=== PATIENT | female | born 1955 | race Caucasian/White ===

== ENCOUNTER 2018-01-10 15:49 | Outpatient (CLI) | payer OTHER ==
[~2018-01-10] VITALS: Ht 161.3 cm; Wt 71.2 kg
[2018-01-10 16:49] LABS: BASOPHILS % (AUTO) 0.3 % (0-1); EOSINOPHILS # (AUTO) 0.2 X10'3 (0-0.9); EOSINOPHILS % (AUTO) 3.2 % (0-6); HEMATOCRIT 37.8 % (35.0-45.0); HEMOGLOBIN 12.4 g/dl (12.0-16.0); LYMPHOCYTES # (AUTO) 1.6 X10'3 (1.1-4.8); LYMPHOCYTES % (AUTO) 30.4 % (21-51); MEAN CORPUSCULAR HEMOGLOBIN 27.1 PG (27.0-31.0); MEAN CORPUSCULAR HGB CONC 32.9 % (33.0-36.5); MEAN CORPUSCULAR VOLUME 82.3 FL (78-98); MEAN PLATELET VOLUME 7.8 FL (7.4-10.4); MONOCYTES # (AUTO) 0.2 X10'3 (0-0.9); MONOCYTES % (AUTO) 4.5 % (2-12); NEUTROPHILS # (AUTO) 3.3 X10'3 (1.8-7.7); NEUTROPHILS % (AUTO) 61.6 % (42-75); PLATELET COUNT 267 X10'3 (140-440); RED BLOOD COUNT 4.59 X10'6 (4.20-5.60); RED CELL DISTRIBUTION WIDTH 14.8 % (11.5-14.5); WHITE BLOOD COUNT 5.4 X10'3 (4.5-11.0)
[2018-01-10] MEDS ORDERED: albuterol 2.5 MG/3 ML nebule NEB ONE (16:55)
[2018-01-10 17:35] LABS: CLARITY,URINE CLEAR (Clear); COLOR,URINE YELLOW (Yellow); GLUCOSE, URINE NEGATIVE (Neg); KETONES,URINE NEGATIVE (Neg); LEUKOCYTE ESTERASE ,URINE NEGATIVE (Neg); NITRITES, URINE NEGATIVE (Neg); OCCULT BLOOD,URINE NEGATIVE (Neg); PROTEIN,URINE NEGATIVE (Neg); UROBILINOGEN,URINE 0.2 E.U/dL (0.2-1.0)
[2018-01-10 17:37] LABS: UA COLLECTION TYPE CLN CATCH MIDSTREAM
[2018-01-10 17:43] LABS: % IRON SATURATION 32 % (11-46); IRON 119 UG/DL (49-151); TOTAL IRON BINDING CAPACITY 377 UG/DL (259-388)
[2018-01-10 17:52] LABS: ALANINE AMINOTRANSFERASE 25 U/L (12-78); ALBUMIN 3.9 G/DL (3.4-5.0); ALBUMIN/GLOBULIN RATIO 1.1 (1.1-1.5); ALKALINE PHOSPHATASE 138 IU/L (46-116); ANION GAP 10 (8-16); ASPARTATE AMINO TRANSFERASE 20 U/L (10-37); BILIRUBIN,TOTAL 0.6 MG/DL (0.1-1.0); BLOOD UREA NITROGEN 19 MG/DL (7-18); BUN/CREATININE RATIO 18.3 (6.6-38.0); CALCIUM 9.9 MG/DL (8.5-10.1); CHLORIDE 103 MMOL/L (99-107); CHOL/HDL RATIO 3.1 (0.00-4.99); CHOLESTEROL 203 MG/DL (0-200); CREATININE 1.04 MG/DL (0.40-0.90); GLUCOSE 80 MG/DL (70-104); HDL CHOLESTEROL 66 MG/DL (35-60); LDL CHOLESTEROL 125 MG/DL (50-100); POTASSIUM 3.7 MMOL/L (3.5-5.1); SODIUM 139 MMOL/L (135-145); TOTAL CARBON DIOXIDE 26.4 MMOL/L (24-32); TOTAL PROTEIN 7.6 G/DL (6.4-8.2); TRIGLYCERIDES 78 MG/DL (20-135); eGFR 54 ML/MIN
[2018-01-10 21:40] LABS: FERRITIN 31 NG/ML (8-252)
[2018-01-11 15:36] LABS: PARATHYROID HORMONE 139 PG/ML (11-67)
[2018-01-13 05:14] LABS: VITAMIN D, 25-HYDROXY 11.1 ng/mL (30.0-100.0)
[2018-01-13 06:34] LABS: MICROALB/CRT, RATIO 10.7 mg/g creat (0.0-30.0)
== END 2018-01-10 23:59 | disposition home or self-care (01) ==
LOC: RT 15:49
PROVIDERS: ATTEND Family Medicine
DX: R06.09 Other forms of dyspnea (principal); J98.4 Other disorders of lung; Z87.09 Personal history of other diseases of the respiratory system; Z98.84 Bariatric surgery status; Z87.891 Personal history of nicotine dependence
CPT/HCPCS: 36415; 80053; 80061; 81003; 82043; 82306; 82330; 82570; 82607; 82728; 82746; 83540; 83550; 83970; 84439; 84443; 84466; 85025; 94060; 94727; 94729; 94760

== ENCOUNTER 2018-01-16 15:59 | Outpatient (CLI) | payer OTHER | END 2018-01-16 23:59 | disposition home or self-care (01) | LOC: RAD 15:59 | PROVIDERS: ATTEND Anesthesiology | DX: M48.02 Spinal stenosis, cervical region (principal); S13.140A Subluxation of C3/C4 cervical vertebrae, initial encounter; M47.814 Spondylosis without myelopathy or radiculopathy, thoracic region; M40.295 Other kyphosis, thoracolumbar region; Z87.891 Personal history of nicotine dependence; X58.XXXA Exposure to other specified factors, initial encounter; Y93.89 Activity, other specified; Y92.89 Other specified places as the place of occurrence of the external cause; Y99.8 Other external cause status | CPT/HCPCS: 72050; 72070; 72125 ==

== ENCOUNTER 2019-08-27 08:49 | Emergency (ER) | payer OTHER, MEDICARE ==
[~2019-08-27] VITALS: Ht 160 cm; Wt 68.2 kg
[2019-08-27 08:55] VITALS: BP 140/81
== END 2019-08-27 09:56 | disposition home or self-care (01) ==
LOC: ER 08:50
DX: R53.81 Other malaise (principal); R53.83 Other fatigue; R50.9 Fever, unspecified; Z20.828 Contact with and (suspected) exposure to other viral communicable diseases; Z88.8 Allergy status to other drugs, medicaments and biological substances
CPT/HCPCS: 36415; 99281; 99283

== ENCOUNTER 2021-11-01 15:09 | Inpatient (IN) | payer BC, MEDICARE ==
[~2021-11-01] VITALS: Ht 161.3 cm; Wt 54.0 kg
[2021-11-01] MEDS ORDERED: HYDROmorphone/PF 0.2 MG/ML SYRINGE IV PRN (15:25)
[2021-11-01] MEDS ORDERED: magnesium hydroxide 30ml (MOM) UD suspension PO PRN (15:25)
[2021-11-01] MEDS ORDERED: acetaminophen 325mg tablet PO PRN (15:25)
[2021-11-01] MEDS ORDERED: ondansetron/PF 4mg/2ml inj IV PRN (15:25)
[2021-11-01] MEDS ORDERED: HYDROmorphone inj. 0.5 MG/0.5 ML DISP.SYRIN IV PRN (15:25)
[2021-11-01] MEDS ORDERED: mag hydrox/Alum hydrox/simeth 30ml oral suspension PO PRN (15:25)
[2021-11-01 16:27] LABS: BASOPHILS % (AUTO) 0.4 % (0-1); EOSINOPHILS # (AUTO) 0.1 X10'3 (0-0.9); EOSINOPHILS % (AUTO) 0.8 % (0-6); HEMOGLOBIN 11.8 g/dl (12.0-16.0); LYMPHOCYTES # (AUTO) 1.6 X10'3 (1.1-4.8); LYMPHOCYTES % (AUTO) 15.7 % (21-51); MEAN CORPUSCULAR HEMOGLOBIN 27.5 PG (27.0-31.0); MEAN CORPUSCULAR HGB CONC 32.8 g/dL (33.0-36.5); MEAN CORPUSCULAR VOLUME 83.8 FL (78-98); MEAN PLATELET VOLUME 7.5 FL (7.4-10.4); MONOCYTES # (AUTO) 0.6 X10'3 (0-0.9); MONOCYTES % (AUTO) 6.5 % (2-12); NEUTROPHILS # (AUTO) 7.7 X10'3 (1.8-7.7); NEUTROPHILS % (AUTO) 76.6 % (42-75); PLATELET COUNT 332 X10'3 (140-440)
[2021-11-01] MEDS: HYDROcodone/acetaminophen 5mg/325mg tablet PO PRN (17:16)
[2021-11-01] MEDS: normal saline 1000ml 1,000 ML IV SCH (17:17)
[2021-11-01] MEDS ORDERED: enoxaparin 100mg/ml syringe SUBCUT ONE ×2 (17:20→19:00)
[2021-11-01] MEDS ORDERED: BUPR300T86 PO (17:21)
[2021-11-01] MEDS ORDERED: CHOL20004 PO (17:21)
[2021-11-01] MEDS ORDERED: MSC30T PO (17:21)
[2021-11-01] MEDS ORDERED: LOSA100T57 PO (17:21)
[2021-11-01] MEDS ORDERED: CYAN100082 PO (17:21)
[2021-11-01] MEDS ORDERED: DEXT20TA6 PO (17:21)
[2021-11-01] MEDS ORDERED: CEPH-585 PO (17:21)
[2021-11-01] MEDS ORDERED: POLY17PO10 PO (17:21)
[2021-11-01] MEDS ORDERED: FLUC200T93 PO (17:21)
[2021-11-01 17:22] LABS: ALANINE AMINOTRANSFERASE 22 U/L (12-78); ALBUMIN 3.5 G/DL (3.4-5.0); ALBUMIN/GLOBULIN RATIO 0.8 (1.1-1.5); ALKALINE PHOSPHATASE 163 IU/L (46-116); ANION GAP 8 (8-16); ASPARTATE AMINO TRANSFERASE 21 U/L (10-37); BILIRUBIN,TOTAL 0.3 MG/DL (0.1-1.0); BLOOD UREA NITROGEN 42 MG/DL (7-18); BUN/CREATININE RATIO 19.3 (6.6-38.0); CALCIUM 10.7 MG/DL (8.5-10.1); CHLORIDE 100 MMOL/L (99-107); CREATININE 2.18 MG/DL (0.40-0.90); GLUCOSE 96 MG/DL (70-104); POTASSIUM 3.6 MMOL/L (3.5-5.1); SODIUM 137 MMOL/L (135-145); TOTAL CARBON DIOXIDE 29.4 MMOL/L (24-32); TOTAL PROTEIN 7.9 G/DL (6.4-8.2); eGFR 22 ML/MIN
[2021-11-01] MEDS ORDERED: FLUO60SO3 TOP (17:25)
--- NOTE | 2021-11-01 17:46 | NUR ---
patient admitted from wound clinic as direct admit. orientated to room, picture taken of right ankle. swab taken of wound. PIV placed in RFA, NS@70mls/hr. Duck 5mg given for pain. will continue to monitor
[2021-11-01 18:00] VITALS: BP 150/83
[2021-11-01] MEDS ORDERED: morphine ER 30mg tablet PO PRN (18:15)
[2021-11-01] MEDS ORDERED: dextroamphetamine/amphetamine 10mg tablet PO PRN (18:15)
[2021-11-01] MEDS ORDERED: FLUOCINONIDE TOP PRN (18:15)
--- NOTE | 2021-11-01 18:53 | NUR ---
Problems reprioritized. Patient report given, questions answered & plan of care reviewed with Heather LOYD.
--- NOTE | 2021-11-01 19:17 | NUR ---
Problems reprioritized. Patient report given, questions answered & plan of care reviewed with Heather LOYD.
[2021-11-01] MEDS: docusate sod 100mg capsule PO SCH (20:00)
[2021-11-01] MEDS: cephalexin 500mg capsule PO SCH (20:58)
[2021-11-01 22:00] VITALS: BP 130/45
[2021-11-02] MEDS: HYDROcodone/acetaminophen 5mg/325mg tablet PO PRN (05:51)
[2021-11-02] MEDS: normal saline 1000ml 1,000 ML IV SCH (05:52)
[2021-11-02 06:00] VITALS: BP 120/55
--- NOTE | 2021-11-02 06:00 | NUR ---
Patient in room ORTHO 4007. I have received report from May and had the opportunity to ask questions and assume patient care.
[2021-11-02 06:41] LABS: BASOPHILS % (AUTO) 0.5 % (0-1); EOSINOPHILS # (AUTO) 0.1 X10'3 (0-0.9); EOSINOPHILS % (AUTO) 2.4 % (0-6); HEMATOCRIT 30.7 % (35.0-45.0); HEMOGLOBIN 10.1 g/dl (12.0-16.0); LYMPHOCYTES # (AUTO) 1.3 X10'3 (1.1-4.8); LYMPHOCYTES % (AUTO) 21.8 % (21-51); MEAN CORPUSCULAR HGB CONC 32.7 g/dL (33.0-36.5); MEAN CORPUSCULAR VOLUME 85.4 FL (78-98); MEAN PLATELET VOLUME 7.6 FL (7.4-10.4); MONOCYTES # (AUTO) 0.5 X10'3 (0-0.9); MONOCYTES % (AUTO) 7.9 % (2-12); NEUTROPHILS # (AUTO) 3.9 X10'3 (1.8-7.7); NEUTROPHILS % (AUTO) 67.4 % (42-75); PLATELET COUNT 262 X10'3 (140-440); RED CELL DISTRIBUTION WIDTH 14.9 % (11.5-14.5); WHITE BLOOD COUNT 5.8 X10'3 (4.5-11.0)
[2021-11-02 07:00] LABS: ALANINE AMINOTRANSFERASE 19 U/L (12-78); ALBUMIN 2.5 G/DL (3.4-5.0); ALBUMIN/GLOBULIN RATIO 0.7 (1.1-1.5); ALKALINE PHOSPHATASE 132 IU/L (46-116); ANION GAP 7 (8-16); ASPARTATE AMINO TRANSFERASE 24 U/L (10-37); BILIRUBIN,TOTAL 0.2 MG/DL (0.1-1.0); BLOOD UREA NITROGEN 42 MG/DL (7-18); BUN/CREATININE RATIO 20.3 (6.6-38.0); CALCIUM 9.8 MG/DL (8.5-10.1); CHLORIDE 105 MMOL/L (99-107); CREATININE 2.07 MG/DL (0.40-0.90); GLUCOSE 111 MG/DL (70-104); POTASSIUM 4.2 MMOL/L (3.5-5.1); SODIUM 140 MMOL/L (135-145); TOTAL CARBON DIOXIDE 27.8 MMOL/L (24-32); TOTAL PROTEIN 6.1 G/DL (6.4-8.2); eGFR 24 ML/MIN
[2021-11-02] MEDS ORDERED: enoxaparin 60mg/0.6ml syringe SUBCUT SCH (08:00)
[2021-11-02] MEDS ORDERED: cholecalciferol (vitamin D3) 1,000 unit (25mcg) tablet PO SCH (08:00)
[2021-11-02] MEDS ORDERED: losartan 50mg tablet PO SCH (08:00)
[2021-11-02] MEDS: docusate sod 100mg capsule PO SCH (08:00)
[2021-11-02] MEDS ORDERED: polyethylene glycol 3350 17gm powd pack PO SCH (08:00)
[2021-11-02] MEDS ORDERED: buPROPion SR 150mg tablet PO SCH (08:00)
[2021-11-02] MEDS ORDERED: cyanocobalamin 500mcg tablet PO SCH (08:00)
[2021-11-02] MEDS: cephalexin 500mg capsule PO SCH ×2 (08:56→13:31)
[2021-11-02 10:00] VITALS: BP 102/57
[2021-11-02] MEDS ORDERED: apixaban 5mg tablet PO ONE (17:10)
[2021-11-02] MEDS ORDERED: APIX5TAB3 PO (17:12)
--- NOTE | 2021-11-02 18:22 | NUR ---
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 Pt well aware of follow up needed, medications and plan for continued care. Pt dressed herself and chose to walk downstairs to be driven home by spouse. All of pt's belongings went home with patient.
[2021-11-03] MEDS ORDERED: enoxaparin 60mg/0.6ml syringe SUBCUT SCH (08:00)
[2021-11-03] MEDS ORDERED: fluconazole 100mg tablet PO SCH (08:00)
== END 2021-11-02 17:40 | disposition home or self-care (01) | DRG 301 ==
LOC: ORTHO 4S 15:12 → EEVIPCON 15:12
PROVIDERS: ADMIT Family Medicine; ATTEND Family Medicine
DX: I82.411 Acute embolism and thrombosis of right femoral vein (principal); I82.431 Acute embolism and thrombosis of right popliteal vein; I82.441 Acute embolism and thrombosis of right tibial vein; I82.451 Acute embolism and thrombosis of right peroneal vein; N18.30 Chronic kidney disease, stage 3 unspecified; S91.001A Unspecified open wound, right ankle, initial encounter; X58.XXXA Exposure to other specified factors, initial encounter; D63.8 Anemia in other chronic diseases classified elsewhere; F43.10 Post-traumatic stress disorder, unspecified; I12.9 Hypertensive chronic kidney disease with stage 1 through stage 4 chronic kidney disease, or unspecified chronic kidney disease; I82.511 Chronic embolism and thrombosis of right femoral vein; I82.531 Chronic embolism and thrombosis of right popliteal vein; I82.541 Chronic embolism and thrombosis of right tibial vein; I82.551 Chronic embolism and thrombosis of right peroneal vein; J45.909 Unspecified asthma, uncomplicated; M40.202 Unspecified kyphosis, cervical region; F32.A Depression, unspecified; G62.9 Polyneuropathy, unspecified; K21.9 Gastro-esophageal reflux disease without esophagitis; Z90.710 Acquired absence of both cervix and uterus; Y93.89 Activity, other specified; Y92.89 Other specified places as the place of occurrence of the external cause; Y99.8 Other external cause status
CPT/HCPCS: 36415; 80053; 85025; 85610; 87081; A6212; A6213; A6446; A6449; G0378; J1650; J7030

== ENCOUNTER 2021-11-04 13:59 | Outpatient (CLI) | payer BC, MEDICARE ==
[~2021-11-04 13:59] MED LIST: APIX5TAB3 PO; BUPR300T86 PO; CEPH-585 PO; CHOL20004 PO; CYAN100082 PO; DEXT20TA6 PO; FLUC200T93 PO; FLUO60SO3 TOP; LOSA100T57 PO; MSC30T PO; POLY17PO10 PO
== END 2021-11-04 23:59 | disposition home or self-care (01) ==
LOC: LAB 13:59
PROVIDERS: ATTEND Nurse Practitioner
DX: L98.499 Non-pressure chronic ulcer of skin of other sites with unspecified severity (principal)
CPT/HCPCS: 87070

== ENCOUNTER 2021-11-17 09:58 | Outpatient (CLI) | payer BC, MEDICARE ==
[2021-11-17 10:55] LABS: BASOPHILS # (AUTO) 0.1 X10'3 (0-0.2); EOSINOPHILS # (AUTO) 0.3 X10'3 (0-0.9); EOSINOPHILS % (AUTO) 3.8 % (0-6); HEMATOCRIT 31.5 % (35.0-45.0); HEMOGLOBIN 10.4 g/dl (12.0-16.0); LYMPHOCYTES # (AUTO) 1.5 X10'3 (1.1-4.8); LYMPHOCYTES % (AUTO) 21.8 % (21-51); MEAN CORPUSCULAR HEMOGLOBIN 27.9 PG (27.0-31.0); MEAN CORPUSCULAR HGB CONC 32.9 g/dL (33.0-36.5); MEAN CORPUSCULAR VOLUME 84.8 FL (78-98); MEAN PLATELET VOLUME 6.7 FL (7.4-10.4); MONOCYTES # (AUTO) 0.3 X10'3 (0-0.9); MONOCYTES % (AUTO) 4.8 % (2-12); NEUTROPHILS # (AUTO) 4.6 X10'3 (1.8-7.7); NEUTROPHILS % (AUTO) 68.6 % (42-75); PLATELET COUNT 379 X10'3 (140-440); RED BLOOD COUNT 3.71 X10'6 (4.20-5.60); WHITE BLOOD COUNT 6.8 X10'3 (4.5-11.0)
[2021-11-17 11:16] LABS: % IRON SATURATION 18 % (11-46); IRON 51 UG/DL (49-151); TOTAL IRON BINDING CAPACITY 289 UG/DL (259-388)
[2021-11-17 11:28] LABS: ALANINE AMINOTRANSFERASE 26 U/L (12-78); ALBUMIN 3.4 G/DL (3.4-5.0); ALBUMIN/GLOBULIN RATIO 0.8 (1.1-1.5); ALKALINE PHOSPHATASE 155 IU/L (46-116); ANION GAP 9 (8-16); ASPARTATE AMINO TRANSFERASE 25 U/L (10-37); BILIRUBIN,TOTAL 0.2 MG/DL (0.1-1.0); BLOOD UREA NITROGEN 28 MG/DL (7-18); BUN/CREATININE RATIO 15.2 (6.6-38.0); C-REACTIVE PROTEIN 0.42 MG/DL (0.0-0.5); CALCIUM 10.4 MG/DL (8.5-10.1); CHLORIDE 103 MMOL/L (99-107); CHOL/HDL RATIO 2.9 (0.00-4.99); CHOLESTEROL 200 MG/DL (0-200); CREATININE 1.84 MG/DL (0.40-0.90); FERRITIN 95 NG/ML (8-252); GLUCOSE 87 MG/DL (70-104); HDL CHOLESTEROL 69 MG/DL (35-60); LDL CHOLESTEROL 105 MG/DL (50-100); PHOSPHORUS 2.8 MG/DL (2.3-4.5); POTASSIUM 4.4 MMOL/L (3.5-5.1); SODIUM 137 MMOL/L (135-145); TOTAL CARBON DIOXIDE 25.4 MMOL/L (24-32); TOTAL PROTEIN 7.7 G/DL (6.4-8.2); TRIGLYCERIDES 84 MG/DL (20-135); eGFR 27 ML/MIN
[2021-11-17 13:16] LABS: CLARITY,URINE CLEAR (Clear); COLOR,URINE YELLOW (Yellow); GLUCOSE, URINE NEGATIVE (Neg); KETONES,URINE NEGATIVE (Neg); LEUKOCYTE ESTERASE ,URINE NEGATIVE (Neg); NITRITES, URINE NEGATIVE (Neg); OCCULT BLOOD,URINE TRACE-INTACT (Neg); PH,URINE 6.5 (4.8-8.0); PROTEIN,URINE NEGATIVE (Neg); UROBILINOGEN,URINE 0.2 E.U/dL (0.2-1.0)
[2021-11-17 13:20] LABS: UA COLLECTION TYPE CLN CATCH MIDSTREAM
[2021-11-17 13:23] LABS: WBC,URINE 0-4 /HPF (0-4)
[2021-11-17 13:24] LABS: BACTERIA,URINE NONE SEEN /HPF (Neg); SQUAMOUS EPITHELIAL CELL,UR NONE SEEN /LPF (FEW)
[2021-11-18 11:37] LABS: A/G RATIO 0.9 (0.7-1.7); ALBUMIN 3.3 g/dL (2.9-4.4); GAMMA GLOBULIN 1.2 g/dL (0.4-1.8); GLOBULIN, TOTAL 3.6 g/dL (2.2-3.9); M-SPIKE Not Observed g/dL (Not Observed); PROTEIN, TOTAL, SERUM 6.9 g/dL (6.0-8.5); TRANSFERRIN 247 mg/dL (192-364)
[2021-11-18 18:14] LABS: MICROALB/CRT, RATIO 20 mg/g creat (0-29)
== END 2021-11-17 23:59 | disposition home or self-care (01) ==
LOC: LAB 09:58 → RAD 23:59
PROVIDERS: ATTEND Nurse Practitioner
DX: N18.4 Chronic kidney disease, stage 4 (severe) (principal); N28.1 Cyst of kidney, acquired; N13.39 Other hydronephrosis
CPT/HCPCS: 36415; 76770; 78707; 80053; 80061; 81001; 82043; 82306; 82330; 82570; 82607; 82728; 82746; 83540; 83550; 83970; 84100; 84155; 84165; 84439; 84443; 84466; 85025; 85651; 86140; A9562

== ENCOUNTER 2021-12-15 06:23 | Day surgery (SDC) | payer BC, MEDICARE ==
[~2021-12-15] VITALS: Ht 160 cm; Wt 60.0 kg
[2021-12-15 06:34] VITALS: BP 156/88
[2021-12-15] MEDS ORDERED: iron sucrose complex (VENOFER) 200 MG in NS 100ml IV IV SCH (06:45)
[2021-12-15 07:00] VITALS: BP 130/87
[2021-12-15 07:15] VITALS: BP 129/74
[2021-12-15 07:28] VITALS: BP 116/73
== END 2021-12-15 08:00 | disposition home or self-care (01) ==
LOC: SSTAY O 06:23
PROVIDERS: ATTEND Internal Medicine Critical Care Medicine
DX: D50.8 Other iron deficiency anemias (principal); N18.4 Chronic kidney disease, stage 4 (severe); D63.1 Anemia in chronic kidney disease; T50.905A Adverse effect of unspecified drugs, medicaments and biological substances, initial encounter; Y92.89 Other specified places as the place of occurrence of the external cause
CPT/HCPCS: 96365; J1756; J3490; J7030

== ENCOUNTER 2021-12-29 06:21 | Day surgery (SDC) | payer BC, MEDICARE ==
[~2021-12-29] VITALS: Ht 160 cm; Wt 60.0 kg
[2021-12-29 06:55] VITALS: BP 122/77
--- NOTE | 2021-12-29 07:29 | NUR ---
IV infusion started. VS stable as charted. Pt resting in bed with call light in reach.
[2021-12-29 07:30] VITALS: BP 116/54
[2021-12-29 08:00] VITALS: BP 114/48
[2021-12-29] MEDS ORDERED: iron sucrose complex injection 200 MG in normal saline 100ml IV soln 100 ML IV SCH (08:00)
[2021-12-29 08:30] VITALS: BP 122/62
[2021-12-29 08:35] VITALS: BP 135/65
== END 2021-12-29 08:35 | disposition home or self-care (01) ==
LOC: SSTAY O 06:21
PROVIDERS: ATTEND Internal Medicine Critical Care Medicine
DX: D50.8 Other iron deficiency anemias (principal); N18.4 Chronic kidney disease, stage 4 (severe); D63.1 Anemia in chronic kidney disease; T50.905A Adverse effect of unspecified drugs, medicaments and biological substances, initial encounter; Y92.89 Other specified places as the place of occurrence of the external cause
CPT/HCPCS: 96365; J1756; J3490

== ENCOUNTER 2022-01-12 06:05 | Day surgery (SDC) | payer BC, MEDICARE ==
[~2022-01-12] VITALS: Ht 161.3 cm; Wt 60.4 kg
[2022-01-12] MEDS ORDERED: iron sucrose complex (VENOFER) 200 MG in NS 100ml IV IV SCH (06:28)
[2022-01-12] MEDS ORDERED: APIX5TAB3 PO (06:37)
[2022-01-12] MEDS ORDERED: AMLO10TA PO (06:44)
[2022-01-12 06:45] VITALS: BP 151/75
[2022-01-12 06:56] VITALS: BP 151/75
[2022-01-12 07:11] VITALS: BP 128/77
[2022-01-12 07:36] VITALS: BP 121/68
== END 2022-01-12 07:45 | disposition home or self-care (01) ==
LOC: SSTAY O 06:05
PROVIDERS: ATTEND Internal Medicine Critical Care Medicine
DX: D50.8 Other iron deficiency anemias (principal); N18.4 Chronic kidney disease, stage 4 (severe); D63.1 Anemia in chronic kidney disease; T50.905A Adverse effect of unspecified drugs, medicaments and biological substances, initial encounter; Y92.89 Other specified places as the place of occurrence of the external cause
CPT/HCPCS: 96365; J1756; J3490

== ENCOUNTER 2022-08-15 10:37 | Outpatient (CLI) | payer BC, MEDICARE ==
[~2022-08-15 10:37] MED LIST changes: +AMLO10TA PO; -CEPH-585 PO; -FLUO60SO3 TOP; -LOSA100T57 PO; +LOSA100T58 PO
[2022-08-15 11:43] LABS: CLARITY,URINE CLEAR (Clear); COLOR,URINE YELLOW (Yellow); GLUCOSE, URINE NEGATIVE (Neg); KETONES,URINE NEGATIVE (Neg); LEUKOCYTE ESTERASE ,URINE NEGATIVE (Neg); NITRITES, URINE NEGATIVE (Neg); OCCULT BLOOD,URINE NEGATIVE (Neg); PROTEIN,URINE NEGATIVE (Neg); UROBILINOGEN,URINE 0.2 E.U/dL (0.2-1.0)
[2022-08-15 11:45] LABS: BASOPHILS % (AUTO) 0.5 % (0-1); EOSINOPHILS # (AUTO) 0.6 X10'3 (0-0.9); EOSINOPHILS % (AUTO) 7.4 % (0-6); HEMOGLOBIN 12.3 g/dl (12.0-16.0); LYMPHOCYTES # (AUTO) 1.5 X10'3 (1.1-4.8); LYMPHOCYTES % (AUTO) 19.1 % (21-51); MEAN CORPUSCULAR HEMOGLOBIN 24.9 PG (27.0-31.0); MEAN CORPUSCULAR HGB CONC 31.5 g/dL (33.0-36.5); MEAN CORPUSCULAR VOLUME 79.2 FL (78-98); MEAN PLATELET VOLUME 6.8 FL (7.4-10.4); MONOCYTES # (AUTO) 0.4 X10'3 (0-0.9); MONOCYTES % (AUTO) 5.7 % (2-12); NEUTROPHILS # (AUTO) 5.3 X10'3 (1.8-7.7); NEUTROPHILS % (AUTO) 67.3 % (42-75); PLATELET COUNT 437 X10'3 (140-440); RED BLOOD COUNT 4.93 X10'6 (4.20-5.60); RED CELL DISTRIBUTION WIDTH 15.5 % (11.5-14.5); WHITE BLOOD COUNT 7.8 X10'3 (4.5-11.0)
[2022-08-15 11:49] LABS: UA COLLECTION TYPE CLN CATCH MIDSTREAM
[2022-08-15 12:07] LABS: % IRON SATURATION 19 % (11-46); IRON 51 UG/DL (49-151); TOTAL IRON BINDING CAPACITY 265 UG/DL (259-388)
[2022-08-15 12:20] LABS: ALANINE AMINOTRANSFERASE 23 U/L (12-78); ALBUMIN 3.2 G/DL (3.4-5.0); ALBUMIN/GLOBULIN RATIO 0.8 (1.1-1.5); ALKALINE PHOSPHATASE 228 IU/L (46-116); ANION GAP 12 (8-16); ASPARTATE AMINO TRANSFERASE 22 U/L (10-37); BILIRUBIN,TOTAL 0.4 MG/DL (0.1-1.0); BLOOD UREA NITROGEN 25 MG/DL (7-18); BUN/CREATININE RATIO 13.5 (10.0-20.0); CHLORIDE 103 MMOL/L (99-107); CHOL/HDL RATIO 3.6 (0.00-4.99); CHOLESTEROL 210 MG/DL (0-200); CREATININE 1.85 MG/DL (0.40-0.90); GLUCOSE 87 MG/DL (70-104); HDL CHOLESTEROL 59 MG/DL (35-60); LDL CHOLESTEROL 118 MG/DL (50-100); PHOSPHORUS 2.9 MG/DL (2.3-4.5); POTASSIUM 4.1 MMOL/L (3.5-5.1); SODIUM 140 MMOL/L (135-145); TOTAL PROTEIN 7.4 G/DL (6.4-8.2); TRIGLYCERIDES 96 MG/DL (20-135); eGFR 27 ML/MIN
[2022-08-15 12:21] LABS: FERRITIN 48 NG/ML (8-252)
== END 2022-08-15 23:59 | disposition home or self-care (01) ==
LOC: RAD 10:37
PROVIDERS: ATTEND Nurse Practitioner
DX: E07.89 Other specified disorders of thyroid (principal); J43.9 Emphysema, unspecified; I83.013 Varicose veins of right lower extremity with ulcer of ankle; I82.509 Chronic embolism and thrombosis of unspecified deep veins of unspecified lower extremity; R06.00 Dyspnea, unspecified; M40.294 Other kyphosis, thoracic region; M47.814 Spondylosis without myelopathy or radiculopathy, thoracic region; Z96.611 Presence of right artificial shoulder joint
CPT/HCPCS: 36415; 71046; 71250; 80053; 80061; 81003; 82043; 82570; 82728; 83540; 83550; 83880; 84100; 84443; 84466; 85025

== ENCOUNTER 2023-06-19 12:10 | Outpatient (CLI) | payer BC ==
[~2023-06-19 12:10] MED LIST changes: +BUPR-564 PO; -BUPR300T86 PO
[2023-06-19 13:27] LABS: ABSOLUTE RETICS # 46200 /CUMM (23000-93000); BASOPHILS % (AUTO) 0.7 % (0-1); EOSINOPHILS # (AUTO) 0.1 X10'3 (0-0.9); HEMATOCRIT 35.9 % (35.0-45.0); HEMOGLOBIN 11.7 g/dl (12.0-16.0); LYMPHOCYTES # (AUTO) 1.1 X10'3 (1.1-4.8); LYMPHOCYTES % (AUTO) 17.7 % (21-51); MEAN CORPUSCULAR HEMOGLOBIN 26.8 PG (27.0-31.0); MEAN CORPUSCULAR HGB CONC 32.6 g/dL (33.0-36.5); MEAN CORPUSCULAR VOLUME 82.4 FL (78-98); MEAN PLATELET VOLUME 7.4 FL (7.4-10.4); MONOCYTES # (AUTO) 0.3 X10'3 (0-0.9); MONOCYTES % (AUTO) 4.7 % (2-12); NEUTROPHILS # (AUTO) 4.5 X10'3 (1.8-7.7); NEUTROPHILS % (AUTO) 74.9 % (42-75); PLATELET COUNT 321 X10'3 (140-440); RED BLOOD COUNT 4.36 X10'6 (4.20-5.60); RETICULOCYTE % (AUTO) 1.1 % (0.5-1.5)
[2023-06-19 13:27] LABS: BILIRUBIN,URINE NEGATIVE (Neg); CLARITY,URINE CLOUDY (Clear); COLOR,URINE YELLOW (Yellow); GLUCOSE, URINE NEGATIVE (Neg); KETONES,URINE NEGATIVE (Neg); NITRITES, URINE NEGATIVE (Neg); OCCULT BLOOD,URINE NEGATIVE (Neg); PROTEIN,URINE NEGATIVE (Neg); UROBILINOGEN,URINE 0.2 E.U/dL (0.2-1.0)
[2023-06-19 13:32] LABS: LEUKOCYTE ESTERASE ,URINE MODERATE (Neg); UA COLLECTION TYPE VOIDED
[2023-06-19 13:33] LABS: BACTERIA,URINE 4+ /HPF (Neg); SQUAMOUS EPITHELIAL CELL,UR FEW /LPF (FEW); WBC CLUMPS,URINE MODERATE /HPF (NEGATIVE)
[2023-06-19 13:34] LABS: RBC,URINE 0-2 /HPF (0-2); WBC,URINE 30-50 /HPF (0-4)
[2023-06-19 13:37] LABS: D-DIMER 0.63 MG/L FEU (0-0.50)
[2023-06-19 13:43] LABS: % IRON SATURATION 10 % (11-46); IRON 34 UG/DL (49-151); TOTAL IRON BINDING CAPACITY 356 UG/DL (259-388)
[2023-06-19 13:53] LABS: ALANINE AMINOTRANSFERASE 15 U/L (12-78); ALBUMIN 3.9 G/DL (3.4-5.0); ALBUMIN/GLOBULIN RATIO 0.9 (1.1-1.5); ALKALINE PHOSPHATASE 244 IU/L (46-116); ANION GAP 10 (8-16); ASPARTATE AMINO TRANSFERASE 17 U/L (10-37); BILIRUBIN,TOTAL 0.2 MG/DL (0.1-1.0); BLOOD UREA NITROGEN 28 MG/DL (7-18); BUN/CREATININE RATIO 16.3 (10.0-20.0); CALCIUM 9.8 MG/DL (8.5-10.1); CHLORIDE 107 MMOL/L (99-107); CHOLESTEROL 203 MG/DL (0-200); CREATINE KINASE 90 U/L (26-192); CREATININE 1.72 MG/DL (0.40-0.90); FREE T4 (FREE THYROXINE) 0.93 NG/DL (0.73-1.40); GLUCOSE 90 MG/DL (70-104); HDL CHOLESTEROL 67 MG/DL (35-60); PHOSPHORUS 2.6 MG/DL (2.3-4.5); POTASSIUM 4.3 MMOL/L (3.5-5.1); SODIUM 141 MMOL/L (135-145); TOTAL CARBON DIOXIDE 24.3 MMOL/L (24-32); TOTAL PROTEIN 8.1 G/DL (6.4-8.2); TRIGLYCERIDES 55 MG/DL (20-135); eGFR 29 ML/MIN
[2023-06-19 13:58] LABS: HEMOGLOBIN A1C 5.7 % (4.5-6.2); LDL CHOLESTEROL 114 MG/DL (50-100)
[2023-06-19 14:54] LABS: FERRITIN 28 NG/ML (8-252)
[2023-06-19 18:29] LABS: IONIZED CALCIUM 1.35 MMOL/L (1.13-1.33)
[2023-06-21 14:06] LABS: CREATININE, URINE 73.1 mg/dL (Not Estab.)
== END 2023-06-19 23:59 | disposition home or self-care (01) ==
LOC: LAB 12:10
PROVIDERS: ATTEND Family Medicine
DX: I12.9 Hypertensive chronic kidney disease with stage 1 through stage 4 chronic kidney disease, or unspecified chronic kidney disease (principal); N18.4 Chronic kidney disease, stage 4 (severe); R53.83 Other fatigue; I82.503 Chronic embolism and thrombosis of unspecified deep veins of lower extremity, bilateral; E04.1 Nontoxic single thyroid nodule; R35.89 Other polyuria; R09.02 Hypoxemia; E83.52 Hypercalcemia; K90.89 Other intestinal malabsorption; Z98.84 Bariatric surgery status; Z86.2 Personal history of diseases of the blood and blood-forming organs and certain disorders involving the immune mechanism
CPT/HCPCS: 36415; 80053; 80061; 81001; 82043; 82306; 82550; 82570; 82607; 82728; 82746; 83036; 83540; 83550; 83735; 83970; 84100; 84439; 84443; 84466; 84482; 85025; 85045; 85379; 85651; 86140; 87088; 87186

== ENCOUNTER 2024-05-01 09:33 | Day surgery (SDC) | payer MEDICARE, OTHER ==
[~2024-05-01] VITALS: Ht 162.6 cm; Wt 65.4 kg
[~2024-05-01 09:33] MED LIST changes: -APIX5TAB3 PO; -FLUC200T93 PO; +GABA-530 PO; -LOSA100T58 PO; +WARF-55 PO; +hyDRALAzine tablet PO
[2024-05-01] MEDS ORDERED: LISI-642 PO (10:09)
[2024-05-01] MEDS ORDERED: DOCU-148 PO (10:09)
[2024-05-01 10:30] VITALS: BP 100/50; PULSE 75; RESP 16; O2SAT 96
[2024-05-01 10:50] VITALS: BP 137/74; PULSE 76; RESP 16; TEMP 98.1; O2SAT 97
[2024-05-01 10:56] VITALS: RESP 16; O2SAT 97
[2024-05-01 11:02] VITALS: BP 127/71; PULSE 78; RESP 16; O2SAT 96
[2024-05-01 11:31] VITALS: BP 140/80; PULSE 80; RESP 15; RESP 16; O2SAT 95; O2SAT 96
[2024-05-02 12:20] VITALS: BP 139/72; PULSE 74; RESP 16; TEMP 98.4; O2SAT 98
[2024-05-02 13:19] VITALS: BP_SYST 127; BP_SYST 129; BP_DIAS 67; BP_DIAS 68; PULSE 73; RESP 15; RESP 16; O2SAT 94
[2024-05-10] MEDS ORDERED: CHOL100046 PO (11:55)
== END 2024-05-02 13:35 | disposition home or self-care (01) ==
LOC: SSTAY O 09:33
PROVIDERS: ATTEND Internal Medicine Critical Care Medicine
DX: D50.8 Other iron deficiency anemias (principal); N18.4 Chronic kidney disease, stage 4 (severe); D63.1 Anemia in chronic kidney disease
CPT/HCPCS: 96365; J2916

== ENCOUNTER 2024-05-08 13:49 | Outpatient (CLI) | payer MEDICARE, OTHER ==
[~2024-05-08 13:49] MED LIST changes: +DOCU-148 PO; +LISI-642 PO; -POLY17PO10 PO; -hyDRALAzine tablet PO
[2024-05-08] MEDS ORDERED: ALBU8HFA INH (17:55)
[2024-05-08] MEDS ORDERED: HYDR25TA90 PO (17:55)
[2024-05-10] MEDS ORDERED: CHOL100046 PO (11:55)
== END 2024-05-08 23:59 | disposition home or self-care (01) ==
LOC: VAS 13:49
PROVIDERS: ATTEND Internal Medicine Critical Care Medicine
DX: I82.612 Acute embolism and thrombosis of superficial veins of left upper extremity (principal); N18.4 Chronic kidney disease, stage 4 (severe); R60.0 Localized edema; R76.0 Raised antibody titer; M21.12 Varus deformity, not elsewhere classified, elbow
CPT/HCPCS: 93970

== ENCOUNTER 2024-05-09 12:31 | Outpatient (CLI) | payer MEDICARE, OTHER ==
[~2024-05-09 12:31] MED LIST changes: +ALBU8HFA INH; +HYDR25TA90 PO
[2024-05-10] MEDS ORDERED: CHOL100046 PO (11:55)
== END 2024-05-09 23:59 | disposition home or self-care (01) ==
LOC: VAS 12:31
PROVIDERS: ATTEND Internal Medicine Critical Care Medicine
DX: I82.511 Chronic embolism and thrombosis of right femoral vein (principal); R60.0 Localized edema; R76.0 Raised antibody titer; N18.4 Chronic kidney disease, stage 4 (severe)
CPT/HCPCS: 93970

== ENCOUNTER 2024-05-13 06:28 | Observation (INO) | payer MEDICARE, OTHER ==
[2024-05-08 09:47] LABS: BASOPHILS # (AUTO) 0.1 X10'3 (0-0.2); BASOPHILS % (AUTO) 0.6 % (0-1); EOSINOPHILS # (AUTO) 0.3 X10'3 (0-0.9); EOSINOPHILS % (AUTO) 3.1 % (0-6); LYMPHOCYTES # (AUTO) 1.2 X10'3 (1.1-4.8); MEAN CORPUSCULAR HEMOGLOBIN 25.8 PG (27.0-31.0); MEAN CORPUSCULAR HGB CONC 32.2 g/dL (33.0-36.5); MEAN CORPUSCULAR VOLUME 79.9 FL (78-98); MEAN PLATELET VOLUME 7.2 FL (7.4-10.4); MONOCYTES % (AUTO) 11.7 % (2-12); NEUTROPHILS # (AUTO) 6.4 X10'3 (1.8-7.7); NEUTROPHILS % (AUTO) 71.6 % (42-75); PRE OP HEMATOCRIT 33.1 % (35.0-45.0); PRE OP PLATELET COUNT 367 X10'3 (140-440); PRE OP WHITE BLOOD COUNT 8.9 10'3 (4.8-10.8); RED BLOOD COUNT 4.14 X10'6 (4.20-5.60)
[2024-05-08 09:55] LABS: PRE OP HEMOGLOBIN 10.7 g/dL (12.0-16.0)
[2024-05-08 10:04] LABS: ALBUMIN 3.5 G/DL (3.4-5.0); ALBUMIN/GLOBULIN RATIO 0.8 (1.1-1.5); ALKALINE PHOSPHATASE 202 IU/L (46-116); BLOOD UREA NITROGEN 25 MG/DL (7-18); BUN/CREATININE RATIO 14.8 (10.0-20.0); CALCIUM 9.5 MG/DL (8.5-10.1); CREATININE 1.69 MG/DL (0.40-0.90); PRE OP ALT 30 U/L (30-65); PRE OP AST 25 U/L (10-37); PRE OP BILIRUB, TOTAL 0.2 MG/DL (0.0-1.0); PRE OP GLUCOSE 82 MG/DL (70-104); PRE OP POTASSIUM 5.3 MMOL/L (3.4-5.1); PRE OP SODIUM 139 MMOL/L (135-145); TOTAL CARBON DIOXIDE 28.2 MMOL/L (24-32); TOTAL PROTEIN 7.7 G/DL (6.4-8.2); eGFR 30 ML/MIN
[2024-05-08 10:06] LABS: CHLORIDE 105 MMOL/L (99-107); PRE OP ANION GAP 6 (8-16)
[2024-05-13] VITALS (31 sets, daily range): BP systolic 82–124; BP diastolic 32–68; PULSE 50–73; RESP 9–21; TEMP 97.5–97.8; O2SAT 88–99
[~2024-05-13] VITALS: Ht 162.6 cm; Wt 61.8 kg
[2024-05-13] MEDS: ceFAZolin 2gm in dextrose, iso 50 ML IV ONE (05:30)
[~2024-05-13 06:28] MED LIST changes: +CHOL100046 PO; -CHOL20004 PO; +tranexamic acid 650mg tablet PO ONE
[2024-05-13] MEDS ORDERED: morphine 2 MG/ML inj. syringe IV PRN (08:35)
[2024-05-13] MEDS ORDERED: morphine 4 MG/ML inj SYRINge IV PRN (08:35)
[2024-05-13] MEDS ORDERED: ondansetron/PF 4mg/2ml inj IV PRN ×2 (08:35→12:15)
[2024-05-13] MEDS ORDERED: meperidine/PF 100mg/ml syringe IV PRN ×3 (08:35)
[2024-05-13] MEDS ORDERED: labetalol 20mg/4ml (5mg/ml) syringe IV PRN (08:35)
[2024-05-13] MEDS ORDERED: proCHLORperazine 10 MG/2 ml inj IV PRN (08:35)
[2024-05-13] MEDS ORDERED: enalaprilat 1.25mg/ml 2ml vial IV PRN (08:35)
[2024-05-13] MEDS: vancomycin/NS 1 GM ADD-VANTAGE 250 ML IV ONE (08:39)
[2024-05-13] MEDS: famotidine 20mg tablet PO ONE (08:40)
[2024-05-13 08:56] LABS: PRE OP PARTIAL THROMB. TIME 25 SECONDS (22-32); PROTHROMBIN TIME 10.5 SECONDS (9.0-12.0)
[2024-05-13] MEDS ORDERED: ROPIVAcaine 0.5% (5mg/ml) 30ml vial ONE ×2 (09:04→12:00)
[2024-05-13] MEDS ORDERED: BUPIVACAINE/MELOXICAM 14 ML VIAL IL ONE (09:05)
[2024-05-13] MEDS ORDERED: BUPIVAcaine/dex-water/PF 7.5 mg/ml 2ml ampul ONE (09:42)
[2024-05-13] MEDS ORDERED: MIDAZolam 1mg/ml 10ml vial ONE (09:51)
[2024-05-13] MEDS ORDERED: fentaNYL/PF 50MCG/1 ML 2ML syringe ONE (09:51)
[2024-05-13] MEDS: BUPIVACAINE/MELOXICAM 14 ML VIAL IL ONE (10:21)
[2024-05-13] MEDS ORDERED: cloNIDine hcl/PF 100mcg/ml inj ONE (11:46)
[2024-05-13] MEDS ORDERED: BUPIVAcaine/PF 7.5mg/ml (0.75%) 10ml vial ONE (12:00)
[2024-05-13] MEDS ORDERED: dexamethasone sod phosphate 4mg/ml inj. ONE (12:00)
[2024-05-13] MEDS ORDERED: oxyCODONE IR 5mg (immed. release) tablet PO PRN (12:15)
[2024-05-13] MEDS ORDERED: HYDROmorphone 1 mg/ml syringe IV PRN (12:15)
[2024-05-13] MEDS ORDERED: acetaminophen 325mg tablet PO PRN (12:15)
[2024-05-13] MEDS ORDERED: albuterol 2.5 MG/3 ML nebule NEB PRN (12:15)
[2024-05-13] MEDS ORDERED: dextroamphetamine/amphetamine 5mg tablet PO PRN (12:15)
[2024-05-13] MEDS ORDERED: bisacodyl 10mg suppository rectal RC PRN (12:15)
[2024-05-13] MEDS ORDERED: naloxone 0.4 mg/ml inj IV PRN (12:15)
[2024-05-13] MEDS ORDERED: magnesium hydroxide 30ml (MOM) UD suspension PO PRN (12:15)
[2024-05-13] MEDS ORDERED: diphenhydrAMINE 25mg capsule PO PRN ×2 (12:15)
[2024-05-13] MEDS ORDERED: HYDROmorphone inj. 0.5 MG/0.5 ML DISP.SYRIN IV PRN (12:15)
[2024-05-13] MEDS: ringers solution, lacted 1,000 ML IV SCH ×2 (12:48)
[2024-05-13] MEDS: normal saline 500ml IV soln 1,000 ML IV ONE (12:51)
[2024-05-13] MEDS: normal saline 1000ml 1,000 ML IV ONE (13:32)
[2024-05-13] MEDS: acetaminophen 325mg tablet PO SCH (13:38)
[2024-05-13] MEDS: gabapentin 100mg capsule PO SCH (13:39)
[2024-05-13] MEDS: potassium cl 20mEq in 1/2 NS 1,000 ML IV SCH (14:38)
[2024-05-13] MEDS: normal saline 1000ml 1,000 ML IV SCH (14:40)
[2024-05-13] MEDS: albumin (Human) 5% 250ml 250 ML IV ONE (15:32)
[2024-05-13] MEDS: ceFAZolin/D5W- 1GM premix 50 ML IV SCH (17:21)
[2024-05-13] MEDS: vancomycin/NS 1 GM ADD-VANTAGE 250 ML IV SCH (20:50)
[2024-05-13] MEDS: gabapentin 300mg capsule PO SCH (20:51)
[2024-05-13] MEDS: sennosides 8.6mg tablet PO SCH (20:51)
[2024-05-13] MEDS: docusate sod 100mg capsule PO ONE (20:51)
[2024-05-13] MEDS: morphine ER 30mg tablet PO PRN (21:16)
[2024-05-13] MEDS: warfarin 5mg tablet PO ONE (21:17)
[2024-05-14 02:00] VITALS: BP 117/58; PULSE 66; RESP 20; TEMP 97.9; O2SAT 94
[2024-05-14 06:00] VITALS: BP 132/63; PULSE 60; RESP 20; TEMP 97.3; O2SAT 94
[2024-05-14 07:08] LABS: BASOPHILS % (AUTO) 0.3 % (0-1); EOSINOPHILS % (AUTO) 0.1 % (0-6); HEMATOCRIT 26.6 % (35.0-45.0); HEMOGLOBIN 8.3 g/dl (12.0-16.0); LYMPHOCYTES # (AUTO) 0.8 X10'3 (1.1-4.8); LYMPHOCYTES % (AUTO) 10.4 % (21-51); MEAN CORPUSCULAR HGB CONC 31.1 g/dL (33.0-36.5); MEAN CORPUSCULAR VOLUME 80.4 FL (78-98); MEAN PLATELET VOLUME 7.8 FL (7.4-10.4); MONOCYTES # (AUTO) 0.4 X10'3 (0-0.9); MONOCYTES % (AUTO) 5.7 % (2-12); NEUTROPHILS # (AUTO) 6.5 X10'3 (1.8-7.7); NEUTROPHILS % (AUTO) 83.5 % (42-75); PLATELET COUNT 222 X10'3 (140-440); RED BLOOD COUNT 3.31 X10'6 (4.20-5.60); RED CELL DISTRIBUTION WIDTH 16.8 % (11.5-14.5); WHITE BLOOD COUNT 7.8 X10'3 (4.5-11.0)
[2024-05-14 07:23] LABS: PROTHROMBIN TIME 10.5 SECONDS (9.0-12.0)
[2024-05-14] MEDS: docusate sod 100mg capsule PO SCH (07:28)
[2024-05-14] MEDS: cyanocobalamin 500mcg tablet PO SCH (07:29)
[2024-05-14] MEDS: BUPROPION HCL 150MG XL 24 HR 150 MG TAB PO SCH (07:29)
[2024-05-14] MEDS: amLODIPine 5mg tablet PO SCH (07:31)
[2024-05-14] MEDS: lisinopril 5mg tablet PO SCH (07:32)
[2024-05-14 08:00] VITALS: RESP 20; O2SAT 95
[2024-05-14] MEDS ORDERED: warfarin 5mg tablet PO SCH (08:00)
[2024-05-14 08:19] LABS: ANION GAP 9 (8-16); CHLORIDE 111 MMOL/L (99-107); POTASSIUM 4.8 MMOL/L (3.5-5.1); SODIUM 142 MMOL/L (135-145); TOTAL CARBON DIOXIDE 22.1 MMOL/L (24-32)
[2024-05-14 11:00] VITALS: BP 113/79; PULSE 66; RESP 16; TEMP 97.7; O2SAT 94
[2024-05-14 15:00] VITALS: BP 126/49; PULSE 73; RESP 16; TEMP 98.9; O2SAT 100
[2024-05-14 16:35] VITALS: RESP 16
[2024-05-14] MEDS: oxyCODONE IR 5mg (immed. release) tablet PO PRN (16:35)
[2024-05-14] MEDS ORDERED: celeCOXIB 100mg capsule PO SCH (20:00)
[2024-05-15] MEDS ORDERED: acetaminophen 325mg tablet PO PRN (18:20)
== END 2024-05-14 17:10 | disposition home or self-care (01) ==
LOC: EEVIPCON 06:28 → PAS IN 06:28 → INTOOBSV 06:28 → PCU 3S 17:00
PROVIDERS: ADMIT Orthopaedic Surgery; ATTEND Orthopaedic Surgery
DX: M17.11 Unilateral primary osteoarthritis, right knee (principal); I12.9 Hypertensive chronic kidney disease with stage 1 through stage 4 chronic kidney disease, or unspecified chronic kidney disease; N18.4 Chronic kidney disease, stage 4 (severe); F32.A Depression, unspecified; Z87.891 Personal history of nicotine dependence; Z86.718 Personal history of other venous thrombosis and embolism; Z79.899 Other long term (current) drug therapy
CPT/HCPCS: 20985; 27447; 80051; 80053; 82948; 85610; 85730; 96365; 96366; 96367; A4215; A4615; A7000; C1713; C1776; C9088; G0378; J0690; J7120; 36415; 85025; 87081; 97110; 97116; 97162; A6449; A6455; J0735; J1100; J2250; J2795; J3010; J3370; J3490; J7030; J7040; P9045

== ENCOUNTER 2024-09-24 07:20 | Day surgery (SDC) | payer MEDICARE, OTHER ==
[2024-09-23 16:12] LABS: MEAN PLATELET VOLUME 7.6 FL (7.4-10.4); RED CELL DISTRIBUTION WIDTH 16.9 % (11.5-14.5)
[2024-09-23 16:32] LABS: APTT 25 SECONDS (22-32); INR 1.1 INR
[2024-09-23 16:40] LABS: CREATININE 2.32 MG/DL (0.40-0.90); TOTAL CARBON DIOXIDE 24.4 MMOL/L (24-32); eGFR 21 ML/MIN
[2024-09-24] VITALS (23 sets, daily range): BP systolic 76–136; BP diastolic 32–69; PULSE 54–85; RESP 9–16; TEMP 97.9; O2SAT 96–100
[~2024-09-24] VITALS: Ht 162.6 cm; Wt 63.0 kg
[~2024-09-24 07:20] MED LIST changes: -ALBU8HFA INH; +BUPR-480 PO; -BUPR-564 PO; +ENOX40SY7 SUBCUT; +MUPI22OI30; -tranexamic acid 650mg tablet PO ONE
[2024-09-24] MEDS: VANCOMYCIN 1GM 200ML H20 (PEG) 200 ML IV ONE (11:35)
[2024-09-24] MEDS: ringers solution, lacted 1,000 ML IV SCH (11:35)
[2024-09-24] MEDS: ceFAZolin 2gm/dext,iso 50mL 50 ML IV ONE (11:36)
[2024-09-24] MEDS ORDERED: BUPIVACAINE/MELOXICAM 14 ML VIAL IL ONE (11:59)
[2024-09-24] MEDS ORDERED: mineral oil 10ml sterile, topical TP ONE (12:05)
[2024-09-24] MEDS ORDERED: tranexamic acid 100mg/ml inj. ONE (12:05)
[2024-09-24] MEDS ORDERED: MIDAZolam 1mg/ml 10ml vial ONE (12:49)
[2024-09-24] MEDS ORDERED: fentaNYL/PF 50MCG/1 ML 2ML syringe ONE (12:50)
[2024-09-24] MEDS ORDERED: propofol inj 20 ML IV ONE ×2 (14:23)
[2024-09-24] MEDS ORDERED: hydrALAZINE 20mg/ml inj. IV PRN (14:30)
[2024-09-24] MEDS ORDERED: morphine 4 MG/ML inj SYRINge IV PRN (14:30)
[2024-09-24] MEDS ORDERED: acetaminophen 1,000mg/100ml IV 100 ML IV PRN (14:30)
[2024-09-24] MEDS ORDERED: HYDROmorphone/PF 0.2 MG/ML SYRINGE IV PRN ×2 (14:30)
[2024-09-24] MEDS ORDERED: ondansetron/PF 4mg/2ml inj IV PRN (14:30)
[2024-09-24] MEDS ORDERED: ringers solution, lacted 1,000 ML IV SCH (14:30)
[2024-09-24] MEDS ORDERED: labetalol 20mg/4ml (5mg/ml) syringe IV PRN (14:30)
[2024-09-24] MEDS: BUPIVACAINE/MELOXICAM 14 ML VIAL IL ONE (14:31)
[2024-09-24] MEDS ORDERED: ROPIVAcaine 0.5% (5mg/ml) 30ml vial ONE (14:46)
--- NOTE | 2024-09-24 15:23 | OPERATIVE REPORT ---
Operative Report Operative Report OPERATIVE REPORT [facility] [address] [place] [address] Date of service: September 24, 2024 PREOPERATIVE DIAGNOSIS M1. Unilateral primary osteoarthritis, left knee (A) POSTOPERATIVE DIAGNOSIS M1 Unilateral primary osteoarthritis, left knee (A) Operation Performed [id number] Total Knee Arthro[place]: [id number] Computer Assisted Navigation Musculoskeletal - Imageless Procedure: Computer-assisted, robotically-assisted, left total knee arthroplasty. Surgeon: Dr. Johnny Eddy [employer] Supervisor: Bernice bryson Anesthesiologist: Dr. Stinson Anesthesia: General Anesthetic and regional blocks Indications: 69-year-old female who has chronic osteoarthritis of the left knee with severe pain and limitation of activities despite extensive non-operative management. This patient has had extensive conservative treatment of knee joint arthritis, including rest, external joint support, anti-inflammatory medications, physical therapy, and corticosteroid injection. Physical therapy has been provided, along with a home exercise program prior to making the decision to proceed with surgical treatment. This therapeutic intervention did not provide any substantial relief of symptoms or improvement in function. The patient has been utilizing a cane, set of crutches, or walker, for more than 3 months prior to deciding to proceed with surgery. These interventions have not provided sufficient relief of pain to allow improvement in function. The patient has utilized non-steroidal anti-inflammatory medications for relief of pain over an extended period of time (more than 2 months), and has not experienced sufficient improvement in symptoms. Despite these treatments, this patient has continued difficulties with pain and limited function. They are unable to walk long distances, do vigorous activities, sit or sleep comfortably. Total knee replacement is the next reasonable step in terms of treatment. Indications for it assistant surgeon: A second set of skilled hands with specific orthopedic knowledge of the surgical procedure and orthopedic surgical techniques was necessary to accomplish this operation successfully, and with the least amount of morbidity for the patient. This facilitated operative exposure, manipulation and handling of tissues, placement of any implants, and accomplishment of wound closure. Findings: There was indeed a very severely arthritic knee, with loss of cartilage, exposed bone, and marginal osteophytes. The medial compartment was particularly bad. A 2 degree varus deformity and 12 degree flexion contracture were measured preoperatively. Post operative alignment was 1 degree valgus, and 3 flexion. Complications: None Estimated Blood Loss: 200 mL Implants: A [employer] Person[employer] CR total knee system was utilized with a size 7 left femoral component, a size E left tibial component, with a smart stem, and a 38 mm patellar component. A 10 mm medial congruent left tibial insert was utilized. The [employer] robotically assisted total knee arthroplasty system and computer was utilized. Procedure: The risks, benefits, expected results, and possible complications of the planned procedure had been explained to the patient and informed consent obtained. The patient was taken to the operating room and underwent a general anesthetic and regional blocks. The patient was placed in the supine position on the operating table, and the left leg was prepped and draped in the usual fashion. A timeout was taken prior to surgery, confirming patient identification, operative side operative site, planned procedure, administration of pre-operative antibiotics, site marking, and presence of all necessary implants and instruments, x-rays and equipment. A standard anterior, slightly lateral approach was performed with a medial parapatellar arthrotomy, and a VMO split. Time was then spent removing excessive synovial tissue and exposing the medial and lateral gutters, as well as moving the anterior sections of the residual menisci. The patella was mobilized to be able to be retracted laterally. This gave exposure of the anterior aspect of the knee. Attention was then directed to the patella. An oscillating saw was utilized to make a flat cut in a freehand manner, removing approximately 9 mm of thickness. The patella was then sized and drilled for the appropriate size patella implant. Infrared arrays were then placed on the distal shaft of the femur anteriorly, and the proximal tibia medially. Utilizing the [employer]happy computer system, the hip, knee, and ankle were landmarked in usual fashion. The initial alignment measurements were then taken confirming the above listed deformity. Surgical planning was then carried out on the computer, confirming alignment of components, sizing, and gap balancing. Appropriate soft tissue releases were performed. The it assistant surgeon was instrumental in maintaining exposure and tissue management and protecting vital structures. The robot was then utilized to perform all distal femoral cuts. The femur was prepared in 4 degrees of flexion and neutral coronal alignment. The robot was then utilized to cut the proximal tibia in 5 degrees of flexion and neutral coronal alignment. The computer was then utilized to check longitudinal alignment and soft tissue balance, and this confirmed excellent alignment. Next the dynamic balancing block was utilized to check and adjust soft tissue balancing. A repeat cut of the femur was performed, removing 2 more millimeters of bone to obtain appropriate flexion and extension gap balancing. Finally, attention was directed to the proximal tibia. The implant was sized and properly rotated, the central drill, and the fin punch performed. Final check of alignment and balancing was then carried out, as well as final removal and cleaning up of soft tissue such as meniscal remnants and osteophytes. A tourniquet was inflated to 300 mmHg after exsanguination of the leg with an Esmarch. Cement was then mixed; 2 batches were utilized, mixed together, for the tibia, the femur and the patella. The cut surface of the tibia was thoroughly lavaged with the pulsating lavage and then dried. The tibia was impacted with the mallet, seating it quite nicely in its proper rotational alignment. Excess cement was removed from around the margins. The femoral cuts were cleaned with a pulsating lavage and then dried with the lap sponges, and the femur was impacted into position with a mallet. The patella was held firmly in place with a clamp. Excess cement was removed around the margins of the components as the cement cured. Pressure was held on the femoral component and tibia by placing a spacer and bringing the leg to full extension and applying axial and hyperextension force. Upon complete hardening of all cement, the knee was inspected and excess cement removed. We lavaged the knee to wash out any debris and checked to make sure we had no impinging cement. The trial spacer was replaced and overall alignment checked with computer, ensuring we had full extension of the knee, and appropri ate medial and lateral soft tissue balance, as well as flexion and extension balance. The tourniquet was deflated and hemostasis obtained with electrocautery. The wound was irrigated thoroughly one more time and then dried with lap sponges. The final tibial spacer was impacted and locked into the locking mechanism without difficulty. After final irrigation and suction of excess fluid, the knee was infiltrated with Zynrelief for postoperative pain control. The tibial and femoral navigation pins and arrays were removed. The tourniquet was then deflated, tourniquet time was 12 minutes. The wound was then closed in layers including retinacular closure, subcutaneous tissue, and skin. Sterile dressing was applied and the patient was returned to the recovery room in satisfactory condition. Electronically Signed by: Johnny Eddy MD Doctor, Orthopedic Surgery Signed on: 09/24/2024 03:22 PM JOHNNY EDDY MD Sep 24, 2024 15:23
[2024-09-24] MEDS: ePHEDrine 50MG/ML INJ. IV ONE (16:14)
[2024-09-24] MEDS: HYDROcodone/acetaminophen 10/325mg tab PO PRN (19:06)
[2024-09-24] MEDS ORDERED: morphine ER 30mg tablet PO SCH (21:00)
[2024-09-24] MEDS ORDERED: warfarin 5mg tablet PO ONE (21:00)
[2024-09-25] MEDS ORDERED: cholecalciferol (vitamin D3) 1,000 unit (25mcg) tablet PO SCH (08:00)
[2024-09-25] MEDS ORDERED: docusate sod 100mg capsule PO SCH (08:00)
[2024-09-25] MEDS ORDERED: BUPROPION HCL 150MG XL 24 HR 150 MG TAB PO SCH (08:00)
[2024-09-25] MEDS ORDERED: cyanocobalamin 500mcg tablet PO SCH (08:00)
[2024-09-25] MEDS ORDERED: enoxaparin 80mg/0.8ml syringe SUBCUT SCH (17:00)
== END 2024-09-24 20:20 | disposition home or self-care (01) ==
LOC: PAS 07:20 → ORTHO 4S 17:34
PROVIDERS: ADMIT Orthopaedic Surgery; ATTEND Orthopaedic Surgery
DX: M17.12 Unilateral primary osteoarthritis, left knee (principal); M25.562 Pain in left knee; F32.9 Major depressive disorder, single episode, unspecified; F90.9 Attention-deficit hyperactivity disorder, unspecified type; R79.1 Abnormal coagulation profile; Z79.899 Other long term (current) drug therapy; Z98.890 Other specified postprocedural states
CPT/HCPCS: 27447; 36415; 80053; 82948; 85025; 85610; 85730; 96365; A4215; A6402; A6449; A7000; C1713; C1776; C9088; G0378; J2250; J2704; J2795; J3010; J3375; J3490; J7030; J7120; Z7506; Z7508; Z7512; Z7610

== ENCOUNTER 2024-12-05 12:31 | Day surgery (SDC) | payer MEDICARE, OTHER ==
[~2024-12-05] VITALS: Ht 162.6 cm; Wt 64.4 kg
[2024-12-05] MEDS: iron sucrose complex (VENOFER) 200 MG in NS 100ml IV IV ONE (13:13)
[2024-12-05] MEDS ORDERED: CINA30TA2 PO (13:21)
[2024-12-05 13:26] VITALS: BP 111/59; PULSE 74; RESP 16; O2SAT 97
[2024-12-05 13:30] VITALS: BP_SYST 118; BP_SYST 133; BP_DIAS 56; BP_DIAS 69; PULSE 76; PULSE 91; RESP 16; TEMP 98.2; O2SAT 95; O2SAT 98
[2024-12-05 13:37] VITALS: RESP 16; O2SAT 98
[2024-12-05 13:45] VITALS: BP 118/54; PULSE 76; RESP 16; O2SAT 96
[2024-12-05 14:00] VITALS: BP 114/55; PULSE 70; RESP 16; O2SAT 97
== END 2024-12-05 14:15 | disposition home or self-care (01) ==
LOC: SSTAY O 12:31
PROVIDERS: ATTEND Internal Medicine Critical Care Medicine
DX: D50.8 Other iron deficiency anemias (principal); N18.4 Chronic kidney disease, stage 4 (severe); D63.1 Anemia in chronic kidney disease; T50.905D Adverse effect of unspecified drugs, medicaments and biological substances, subsequent encounter; Y92.89 Other specified places as the place of occurrence of the external cause
CPT/HCPCS: 96365; J1756

== ENCOUNTER → 2024-12-06 | Day surgery (SDC) | payer MEDICARE, OTHER ==
[~2024-12-06] VITALS: Ht 162.6 cm; Wt 63.7 kg
[~2024-12-06] MED LIST changes: +CINA30TA2 PO
[2024-12-06 07:45] VITALS: BP 129/54; PULSE 71; RESP 12; TEMP 98.2; O2SAT 98
[2024-12-06] MEDS: iron sucrose complex (VENOFER) 200 MG in NS 100ml IV IV ONE (08:16)
[2024-12-06 09:15] VITALS: BP 125/52; PULSE 70; RESP 14; O2SAT 98
== END | disposition home or self-care (01) ==
LOC: SSTAY O 07:32
PROVIDERS: ATTEND Internal Medicine Critical Care Medicine
DX: D50.8 Other iron deficiency anemias (principal); N18.4 Chronic kidney disease, stage 4 (severe); D63.1 Anemia in chronic kidney disease; T50.905D Adverse effect of unspecified drugs, medicaments and biological substances, subsequent encounter; Y92.89 Other specified places as the place of occurrence of the external cause
CPT/HCPCS: 96365; J1756

== ENCOUNTER 2025-01-06 08:36 | Outpatient (CLI) | payer MEDICARE, OTHER ==
[~2025-01-06 08:36] MED LIST changes: -ENOX40SY7 SUBCUT; -MUPI22OI30
--- NOTE | 2025-01-06 10:33 | RADIOLOGY REPORT ---
ULTRASOUND SOFT TISSUE HEAD AND NECK CLINICAL INDICATION: NONTOXIC SINGLE THYROID NODULE TECHNIQUE: Multiple real time sonographic images of the thyroid were obtained. FINDINGS: The right thyroid gland measures 3 x 2 x 1 cm. The left thyroid gland measures approximately 3 x 2 x 2 cm. The isthmus measures 0.3 cm. TI-RADS 3 nodule seen bilaterally measuring 4 mm right lower lobe and 4 mm left lower lobe. Follow-up in 1 year. IMPRESSION: 1. TI-RADS 3 nodule seen bilaterally measuring 4 mm right lower lobe and 4 mm left lower lobe. Follow-up in 1 year.
== END 2025-01-06 23:59 | disposition home or self-care (01) ==
LOC: RAD 08:36
PROVIDERS: ATTEND Family Medicine
DX: E04.1 Nontoxic single thyroid nodule (principal)
CPT/HCPCS: 76536